=== PATIENT | male | born 1975 | race Caucasian/White ===

== ENCOUNTER 2018-05-17 14:03 | Observation (INO) | payer OTHER ==
[~2018-05-17] VITALS: Ht 193 cm; Wt 143.8 kg
[2018-05-17] MEDS ORDERED: SODIUM CHLORIDE 0.9% 1000ML 1,000 ML IV STA (14:21)
[2018-05-17 14:49] LABS: BASOPHILS # (AUTO) 0.1 (0.0-0.1); BASOPHILS % 0.6 % (0.0-1.0); EOSINOPHILS # (AUTO) 0.2 (0.0-0.4); EOSINOPHILS % 1.9 % (0.0-6.0); HEMATOCRIT 38.4 % (38.2-49.6); HEMOGLOBIN 13.4 g/dL (14.0-18.0); LYMPHOCYTES # (AUTO) 1.7 (1.0-3.2); LYMPHOCYTES % 20.4 % (18.0-39.1); MEAN CORPUSCULAR HEMOGLOBIN 30.9 pg (28-32); MEAN CORPUSCULAR HGB CONC 34.9 g/dL (31-35); MEAN CORPUSCULAR VOLUME 88.7 fL (81-99); MONOCYTES # (AUTO) 0.6 (0.2-0.8); MONOCYTES % 7.2 % (4.4-11.3); NEUTROPHILS # (AUTO) 5.9 (2.1-6.9); NEUTROPHILS % 69.4 % (38.7-80.0); PLATELET COUNT 244 x10e3/uL (140-360); RED BLOOD COUNT 4.33 x10e6/uL (4.3-5.7)
[2018-05-17 15:06] LABS: ALANINE AMINOTRANSFERASE 41 IU/L (0-55); ALBUMIN 4.1 g/dL (3.5-5.0); ALBUMIN/GLOBULIN RATIO 1.4 (0.8-2.0); ALKALINE PHOSPHATASE 59 IU/L (40-150); ANION GAP 15.6 mmol/L (8-16); BLOOD UREA NITROGEN 18 mg/dL (7-26); BUN/CREATININE RATIO 17 (6-25); CALCIUM 9.3 mg/dL (8.4-10.2); CARBON DIOXIDE 25 mmol/L (22-29); CHLORIDE 106 mmol/L (98-107); CREATINE KINASE 176 IU/L (30-200); CREATININE, SERUM 1.09 mg/dL (0.72-1.25); EST GLOMERULAR FILTRATION RATE > 60 ML/MIN (60-); GLUCOSE 132 mg/dL (74-118); POTASSIUM 3.6 mmol/L (3.5-5.1); SODIUM 143 mmol/L (136-145)
--- NOTE | 2018-05-17 15:52 | Diagnostic Imaging Report ---
Examination: CT head without contrast Clinical Indication: Lethargic. Lip numbness. Hypertension. Technique: Transaxial noncontrast images from the skull base through the vertex were obtained. Sagittal and coronal reformatted images were done. Dose modulation, iterative reconstruction, and/or weight based adjustment of the mA/kV was utilized to reduce the radiation dose to as low as reasonably achievable. Comparison: None. Findings: Scalp: No abnormalities. Bones: Intact. No fractures. No blastic or lytic lesions. Brain sulci: Appropriate for patient's age. Ventricles: Normal in size and configuration. No hydrocephalus. Extra-axial space: No abnormalities. Parenchyma: No abnormal densities. No masses, hemorrhage, or acute or chronic cortical based vascular insults. Suprasellar region: No abnormalities. Craniocervical junction: The foramen magnum is patent. No Chiari one malformation. Impression: No intracranial abnormality. Signed by: Dr. Latoya Cassidy M.D. on 05/17/2018 3:48 PM
[2018-05-17] MEDS ORDERED: AMLODIPINE BESYL5 MG PO (18:08)
[2018-05-17] MEDS ORDERED: SIMVASTATIN40 MG PO (18:08)
[2018-05-17] MEDS ORDERED: IRBESARTAN150 MG PO (18:08)
[2018-05-17] MEDS ORDERED: KLOR-CON 1010 MEQ PO (18:08)
[2018-05-17] MEDS ORDERED: FUROSEMIDE40 MG PO (18:08)
[2018-05-17 18:34] VITALS: BP 165/95
[2018-05-17 19:08] VITALS: BP 165/95
[2018-05-17 19:10] VITALS: BP 165/95
[2018-05-17 20:00] VITALS: BP 158/83
[2018-05-18] VITALS: BP 131/74
[2018-05-18 04:00] VITALS: BP 134/69
[2018-05-18 07:56] VITALS: BP 114/63
[2018-05-18] MEDS ORDERED: GADOBENATE DIMEGLUMINE 0 ML IV ONE (08:19)
[2018-05-18 08:41] LABS: CHOL/HDL RATIO 4.4 (3.9-4.7)
--- NOTE | 2018-05-18 08:57 | History and Physical ---
PRIMARY CARE PHYSICIAN: Dr. Ha CHIEF COMPLAINT: Tingling in lips and fingers. 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 He also felt strange, and felt like he had difficulty speaking. His admits that the patient did have slurred speech. He came to the hospital for further evaluation and management. There was no focal weakness. There was some mild memory deficits. The patient admits to having problems focusing vision cardona. The patient admits to starting Lasix just a few days ago due to fluid retention with amlodipine. He took 1 dose of Lasix, and then developed these symptoms later while at work. PAST MEDICAL HISTORY: Hypertension, hyperlipidemia. PAST SURGICAL HISTORY: Tonsillectomy. ALLERGIES: PER ELECTRONIC MEDICAL RECORDS. FAMILY HISTORY/SOCIAL HISTORY: Patient is . He has 2 children. Occasional alcohol. No cigarettes. 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 MEDICATIONS: Per electronic medical record. REVIEW OF SYSTEMS: Denies any fever, chills, sweats, nausea, vomiting, diarrhea, headache, chest pain. PHYSICAL EXAMINATION VITAL SIGNS: Have been reviewed. GENERAL: A tired-appearing man resting in bed. HEENT: Anicteric. CARDIOVASCULAR: Normal S1 and S2. No murmurs. LUNGS: Moderate breath sounds. ABDOMEN: Soft, nontender and nondistended. EXTREMITIES: Trace edema. SKIN: Dry. PSYCHIATRIC: Normal affect. NEUROLOGICAL: Alert and oriented times 3. Moving all extremities. No visual field deficits. Motor strength is 5/5 in all extremities. LABS: Reviewed. MEDICATIONS: Reviewed. ASSESSMENT AND PLAN: This is a 43-year-old man with: 1. Transient ischemic attack versus stroke. 2. Hypertension. 3. Hyperglycemia. 4. Obesity. 5. Hyperlipidemia. PLAN 1. Obtain lipid panel. 2. Screen for diabetes. 3. Obtain B12 and TSH levels. 4. Check MRI and MRA of the head and neck. 5. Physical therapy consultation. 6. Lovenox and Pepcid. 7. Disposition. Physical therapy consultation. Follow up MRA of the head and neck. Job#: [id number] RI
[2018-05-18] MEDS ORDERED: IRBESARTAN 150 MG TAB PO SCH (09:00)
[2018-05-18] MEDS ORDERED: AMLODIPINE BESYLATE 5 MG TAB PO SCH (09:00)
[2018-05-18] MEDS ORDERED: FUROSEMIDE 40 MG TAB PO SCH (09:00)
[2018-05-18] MEDS: FAMOTIDINE 20 MG TAB PO SCH ×3 (09:26→17:49)
[2018-05-18 10:34] VITALS: BP 114/63
[2018-05-18 11:36] VITALS: BP 137/83
[2018-05-18 14:25] LABS: THYROID STIMULATING HORMONE 1.123 uIU/mL (0.350-4.940)
[2018-05-18 15:01] VITALS: BP 146/80
[2018-05-18] MEDS ORDERED: ENOXAPARIN SOD INJ 40 MG/0.4 ML SYR SC SCH (17:00)
[2018-05-18] MEDS ORDERED: SIMVASTATIN 40 MG TAB PO SCH (21:00)
--- NOTE | 2018-05-18 22:19 | Consultation ---
AUDIO CUTTING IN AND OUT IN MULTIPLE PORTIONS OF THE REPORT DATE OF CONSULTATION: May 18, 2018 NEUROLOGY CONSULT NOTE HISTORY OF PRESENT ILLNESS: Mr. Messina is a 43-year-old right hand dominant man with past medical history significant for hypertension and hyperlipidemia, admitted to [facility] on May 17, 2018, with multiple symptoms. On the afternoon of admission, the patient was outside with his football team for approximately 20 minutes. When he returned to his classroom, the patient experienced a rather abrupt onset of tingling around his lips and in the fingers of both hands. The patient endorses cognitive slowing as well. Mr. Messina states he was not confused, but his thought processes were slowed. Mr. Messina endorses mild slurring of speech as well. The above symptoms began between 1300 and 1330 on day of admission. The duration of these symptoms is unclear. Mr. Messina has not experienced similar symptoms previously. He does not report a visual field cut or other disturbance, facial droop, hemiparesis, hemihypesthesia, poor balance, gait impairment, or confusion associated with the above symptoms. Lastly, the patient does not report a headache associated with the symptoms. Mr. Messina drove himself to the emergency center at [facility] for further evaluation of his symptoms. From the emergency center, he was admitted to [facility] for further evaluation and treatment of his symptoms. REVIEW OF SYSTEMS: Tingling around the lips and fingers of both hands, cognitive slowing, slurred speech. Otherwise, a 12-point review of systems was negative. PAST MEDICAL HISTORY: Hypertension, hyperlipidemia, history tension headache. PAST SURGICAL HISTORY: Tonsillectomy. PAST HOSPITALIZATIONS: Surgeries/procedures as listed. FAMILY HISTORY: Patient's paternal a maternal grandparents are . The paternal grandfather from colon cancer. The paternal grandmother had a history of carotid stenosis. The maternal grandfather's medical history is unknown. The maternal grandmother is from a stroke. The patient's father is alive and has a history of coronary artery disease. The patient's mother is alive and has a history of hypertension and coronary artery disease. The patient has two siblings, a sister and brother, both of whom a living. His sister has thyroid disease. His brother is healthy. Mr. Messina has two daughters who are alive and healthy. SOCIAL HISTORY: The patient is . 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 The patient does report a history of tobacco use, but quit smoking cigarettes approximately 6 years ago. The patient does report social alcohol use. He does not report current or prior recreational drug use. HOME MEDICATIONS: Please see the list of home medications available in the electronic medical record. ALLERGIES: NO KNOWN DRUG ALLERGIES. MR. MESSINA REPORTS LACTOSE INTOLERANCE. NO KNOWN ALLERGIES TO LATEX. NO KNOWN ALLERGIES TO IODINE OR OTHER CONTRAST MATERIALS. PHYSICAL EXAMINATION VITAL SIGNS: Height pending. Weight pending. BMI pending. Blood pressure pending. Pulse pending. Respiratory rate pending. Oxygen saturation pending. GENERAL: The patient is awake and alert. Does not appear distressed. HEENT: Normocephalic, atraumatic. Pupils are equal, round, and reactive to light. Moist mucous membranes. NECK: Supple. No appreciable thyromegaly. No appreciable carotid bruits. CARDIOVASCULAR: S1, S2, regular rate and rhythm. No murmurs, rubs, or gallops. RESPIRATORY: Clear to auscultation bilaterally. No wheezes, rhonchi or rales. EXTREMITIES: The skin is warm and dry. No clubbing, cyanosis or edema. The posterior tibial and dorsalis pedis pulses are 2+ and symmetric. skin: No rashes or lesions. NEUROLOGIC Memory/Attention: The patient is awake and alert, oriented to person, place, time, and situation. Cranial Nerves: Cranial nerve I--not tested. Cranial nerve II, III, IV, and --pupils are equal and round, react briskly to light (from 4 mm to 2 mm). Extraocular movements intact. No nystagmus. Cranial nerve V--sensation to light touch and pinprick is intact in the bilateral V1 through V3 distributions. Strength in the temporalis and masseter muscles is within normal limits. Cranial nerve VII--the face is symmetric as are all facial movements. Strength is within normal limits. Cranial nerve VIII--hearing is intact to finger rub bilaterally. Cranial nerve IX, X--the soft palate elevates equally and symmetrically. Cranial nerve XI--normal strength of the bilateral sternocleidomastoid and trapezius muscles. Cranial nerve XII--the tongue protrudes midline and moves symmetrically from side to side. Strength: Bulk is normal. Strength is 5/5 on bilateral deltoids, biceps, triceps, wrist flexors and extensors, finger flexors and extensors, intrinsic hand muscles, hip flexors, knee flexors and extensors, ankle dorsiflexion and plantar flexion, and intrinsic foot muscles. Tone is normal. DTRs: Deep tendon reflexes are 2+ and symmetric at the triceps, biceps, brachioradialis, patellas, and Achilles. Sensation: Sensation is intact to light touch and pinprick in both arms and both arms. Gait: Deferred. Speech: Spontaneous speech is normal without appreciable dysarthria or aphasia. Repetition is intact. Involuntary Movements: None. Pronator Drift: None. LABORATORY DATA: The patient's comprehensive metabolic panel is significant for elevated serum glucose of 132. Cardiac enzymes are negative x1. Total cholesterol 150, triglycerides 176, LDL cholesterol 81, HDL cholesterol 34. TSH 1.123. Vitamin B12 greater than 2000. Hemoglobin A1c 5.2. The CBC with differential and platelets reveals a white blood cell count of 8.49 with a normal differential. The hemoglobin and hematocrit are 13.4 and 38.4, respectively. The platelet count is 244,000. DIAGNOSTIC STUDIES 1. Electrocardiogram, 05/17/2018: Normal sinus rhythm at 77 beats per minute. 2. CT of the brain without contrast, 05/17/2018: On my review, there is no evidence of recent large territorial ischemia, hemorrhage, mass or mass effect. Cerebral volume is appropriate for age. There are no findings suggestive of chronic small vessel ischemic disease. ASSESSMENT AND PLAN: Mr. Messina is a 43-year-old right-hand dominant man with past medical history significant for hypertension and hyperlipidemia, admitted to [facility] with symptoms detailed in the history of present illness. It is important to note, shortly before the onset of the above symptoms, the patient had taken a dose of furosemide. It was the 1st time the patient had taken this medication. At present, the patient's neurological examination is nonfocal. His laboratory data and other diagnostic studies have been reviewed and are documented above. In my opinion, it is unlikely the patient's symptoms are due to a transient ischemic attack/stroke due to the bilateral nature of the symptoms. In my opinion, it is more likely the patient's symptoms are the result of medication side effect (i.e. side effects to the patient's new medication of furosemide). Mr. Messina was advised to discuss continued treatment with this medication with his primary care physician. Thank you for this consultation. There are no recommendations from the neurology service at this time. The patient may be discharged to home. TIME SPENT: 70 minutes. Job#: [id number] CQ MTDD
--- NOTE | 2018-05-19 06:17 | Discharge Summary ---
PRINCIPAL DIAGNOSES 1. Transient ischemic attack. 2. Hypertension. 3. Hyperglycemia. 4. Obesity. SECONDARY DIAGNOSIS: Hypertension. CHIEF COMPLAINT: Tingling in lips and fingers. HISTORY OF PRESENT ILLNESS: A 43-year-old man with tingling in lips and fingers. Refer to H and P for further details. HOSPITAL COURSE: CT scan was obtained which was negative. Patient was evaluated by neurology. Patient unable to obtain MRI due to patient's body habitus. Patient needs to follow up outpatient by neurology for further evaluation and management, but patient's symptoms did improve. His LDL and triglycerides were 81 and 176 respectively. Vitamin B12 more than 2000. TSH normal. Hemoglobin A1c was 5.2. Patient was subsequently transitioned out to . FOLLOWUP 1. Primary care doctor in 1 week. 2. Neurology in 1 week. CONDITION ON DISCHARGE: Stable and improving. DISCHARGE LOCATION: Home. TOYA ALEXANDER MD Job#: [id number] CF
== END 2018-05-18 17:56 | disposition home or self-care (01) ==
LOC: ER 14:03 → ERHOLD 17:22 → IMCU 18:24
PROVIDERS: ADMIT Internal Medicine; ATTEND Internal Medicine
DX: G45.9 Transient cerebral ischemic attack, unspecified (principal); I10 Essential (primary) hypertension; E78.5 Hyperlipidemia, unspecified; E66.9 Obesity, unspecified; R73.9 Hyperglycemia, unspecified; Z68.38 Body mass index [BMI] 38.0-38.9, adult
CPT/HCPCS: 36415 ×2; 70450; 80053; 80061; 82550; 82553; 82607; 83036; 84443; 84484; 85025; 93005; 97161; 99284; G0378 ×2; G8978; G8979; G8980; J7030